=== PATIENT | female | born 1980 | race Two or more races ===

== ENCOUNTER 2019-04-09 16:37 | Emergency (ER) | payer MEDICAID, OTHER ==
[~2019-04-09] VITALS: Ht 167.6 cm; Wt 88.0 kg
[~2019-04-09 16:37] MED LIST: ACET-141 PO; PREN1TAB31 PO
[2019-04-09 16:40] VITALS: BP 110/68; PULSE 77; RESP 16; Ht 167.6 cm; Wt 88.0 kg
--- NOTE | 2019-04-09 19:26 | ERD ---
ER Documentation Chief Complaint Chief Complaint LT HEEL PAIN X 1 MONTH , DENIES ANY INJURY HPI 38-year-old female with no significant past history presents for left heel pain x1 month. She says that the pain is getting little bit worse. She states that the pain is a 4 out of 10 without movement and 6 out of 10 with movement. Pain is described as a dull sensation. No pain radiation noted. No previous injury noted. Denies fever. Denies chest pain or shortness of breath. Denies abdominal pain, nausea, vomiting. No other modifying factors noted, no other treatments tried at home. ROS All systems reviewed and are negative except as per history of present illness. Medications Home Meds Active Scripts Acetaminophen* (Acetaminophen*) 500 MG Extra Strength Tablet, 500 MG PO Q4H PRN for PAIN AND OR ELEVATED TEMP, #30 TAB Prov:MARCELLUS CABRAL DO 04/09/19 Reported Medications Vits #90-Iron Fum-FA ( Formula) 1 Each Tablet, 1 TAB PO DAILY, TAB 07/14/14 Allergies Allergies: Coded Allergies: No Known Allergy (Unverified , 07/14/14) PMhx/Soc History of Surgery: No Anesthesia Reaction: No Hx Neurological Disorder: No Hx Respiratory Disorders: No Hx Cardiac Disorders: No Hx Psychiatric Problems: No Hx Miscellaneous Medical Probl: No Hx Alcohol Use: No Hx Substance Use: No Hx Tobacco Use: No FmHx Family History: No coronary disease Physical Exam Vitals Vital Signs Date Temp Pulse Resp B/P (MAP) Pulse Ox O2 O2 Flow FiO2 Time Delivery Rate 04/09/19 98.9 77 16 110/68 98 16:40 (82) Physical Exam Const: No acute distress Resp: Clear to auscultation bilaterally Cardio: Regular rate and rhythm, no murmurs Skin: No petechiae or rashes Back: No midline or flank tenderness Neur: Awake and alert Psych: Normal Mood and Affect Lower Extremity -bilateral: Skin: No laceration Compartments: Soft Motor: Full active range of motion hip/knee/ankle/foot Sensation: Intact to light touch FDWS/MF/LF/P surfaces. Bones: Nontender pelvis/knee/proximal tibia/ malleoli/mild tenderness palpation of the left heel Joints: No effusion or laxity Pulses/Perfusion: 2+ DP, Capillary refill < 2 seconds Procedures/MDM Medical Decision Making: Differential diagnosis includes but not limited to fracture, dislocation, muscle strain, ligamentous sprain, septic joint, osteomyelitis, gout, Patient appeared well on physical exam. There was tenderness over the left heel Patient was neurovascularly intact Patient denies fever, no recent infection, low suspicion for septic joint or osteomyelitis. Imaging: X-ray left foot 3V Interpreted by me: Bones: No fracture Joints: No dislocation Foreign body: None. Patient was informed of her results. Possibly the patient has muscle strain or ligamentous sprain. Advised regarding supportive treatment. Patient agrees with plans Prescription(s): Patient given prescription for supportive medication(s). Also advised warm compressions. Patient advised to follow up with PCP in 1-2 days. Patient advised to return to ED for new or worsening symptoms. Patient stable on discharge from the ED. Disclaimer: Inadvertent spelling and grammatical errors are likely due to EHR/dictation software use and do not reflect on the overall quality of patient care. Also, please note that the electronic time recorded on this note does not necessarily reflect the actual time of the patient encounter. Departure Diagnosis: Primary Impression: Foot pain Laterality: left Qualified Codes: M79.672 - Pain in left foot Condition: Fair Patient Instructions: Treating Plantar Fasciitis Referrals: [facility] (PCP) Additional Instructions: Call your primary care doctor TOMORROW for an appointment during the next 1-2 days.See the doctor sooner or return here if your condition worsens before your appointment time. MARCELLUS CABRAL DO Apr 09, 2019 19:26
== END 2019-04-09 19:25 | disposition home or self-care (01) ==
LOC: E/R 16:37
DX: M79.672 Pain in left foot (principal)
CPT/HCPCS: 73630; Z7502